=== PATIENT | female | born 1995 | race Caucasian/White ===

== ENCOUNTER 2025-02-10 00:56 | Emergency (ER) | payer OTHER ==
[~2025-02-10] VITALS: Ht 157.5 cm; Wt 75.7 kg
[2025-02-10 01:03] VITALS: O2SAT 99
[2025-02-10 01:30] VITALS: BP 107/68; PULSE 63; RESP 16; TEMP 36.6; O2SAT 99
== END 2025-02-10 01:50 | disposition home or self-care (01) ==
LOC: ER 00:56
DX: Z00.8 Encounter for other general examination (principal); Z77.21 Contact with and (suspected) exposure to potentially hazardous body fluids; F41.9 Anxiety disorder, unspecified; Z98.890 Other specified postprocedural states
CPT/HCPCS: 36415; 99283